=== PATIENT | female | born 1950 | race Caucasian/White ===

== ENCOUNTER → 2017-11-29 | Day surgery (SDC) | payer MEDICARE, OTHER ==
[2017-11-28 12:49] LABS: BASOPHILS # (AUTO) 0.1 (0.0-0.1); BASOPHILS % 0.7 % (0.0-1.0); EOSINOPHILS # (AUTO) 0.1 (0.0-0.4); LYMPHOCYTES # (AUTO) 2.7 (1.0-3.2); LYMPHOCYTES % 38.5 % (18.0-39.1); MEAN CORPUSCULAR HEMOGLOBIN 29.6 pg (28-32); MEAN CORPUSCULAR HGB CONC 34.1 g/dL (31-35); MONOCYTES # (AUTO) 0.6 (0.2-0.8); MONOCYTES % 8.4 % (4.4-11.3); NEUTROPHILS # (AUTO) 3.6 (2.1-6.9); NEUTROPHILS % 50.1 % (38.7-80.0); PLATELET COUNT 264 x10e3/uL (140-360); RED BLOOD COUNT 5.06 x10e6/uL (3.6-5.1); RED CELL DISTRIBUTION WIDTH 12.5 % (11.7-14.4)
[2017-11-28 13:12] LABS: ANION GAP 18.2 mmol/L (8-16); CALCIUM 10.2 mg/dL (8.4-10.2); CREATININE, SERUM 0.95 mg/dL (0.57-1.11); POTASSIUM 3.2 mmol/L (3.5-5.1)
--- NOTE | 2017-11-28 13:24 | Diagnostic Imaging Report ---
EXAMINATION: CHEST 2 VIEWS INDICATION: PRE OP. \S\ANESTH PROT. Left foot surgery. COMPARISON: None FINDINGS: PA and lateral views TUBES and LINES: None. LUNGS: Lungs are well inflated. Punctate calcified granuloma in the left lung base. Lungs are clear. There is no evidence of pneumonia or pulmonary edema. PLEURA: No pleural effusion or pneumothorax. HEART AND MEDIASTINUM: The cardiomediastinal silhouette is unremarkable. BONES AND SOFT TISSUES: No acute osseous lesion. Soft tissues are unremarkable. UPPER ABDOMEN: No free air under the diaphragm. IMPRESSION: No acute thoracic abnormality. Signed by: Dr. Alton Talavera M.D. on 11/28/2017 1:21 PM
[~2017-11-29] MED LIST: BUPIVACAINE HCL 0.5% INJ 30 ML VIAL INJ ONE; CEFAZOLIN SOD 1 GM VIAL ONE; DEXAMETHASONE SOD PHOS INJ 4 MG/ML VIAL ONE; DIOVAN PO; EFFEXOR PO; EPHEDRINE SULFATE INJ 50 MG/10 ML SYR ONE; FENTANYL CITRATE/PF 100MCG/2 ML INJ ONE; LIDOCAINE HCL 2% LOCAL INJ 5 ML SDV VIAL INJ ONE; MIDAZOLAM HCL 2 MG/2 ML VIAL ONE; ONDANSETRON HCL INJ 2 MG/ML VIAL ONE; PHENYLEPHRINE HCL 1% 10 MG/ML VIAL ONE; PROMETHAZINE HCL (IM) 25 MG/ML VIAL ONE; PROPOFOL IV EMULSION 10 MG/ML 20 ML VIAL ONE; SEVOFLURANE INHAL SOLN 250 ML PEN BTL ONE; TOPROL PO
--- NOTE | 2017-11-29 08:10 | Operative Report ---
DATE OF PROCEDURE: November 29, 2017 PREOPERATIVE DIAGNOSIS: Left hallux valgus. POSTOPERATIVE DIAGNOSES 1. Left hallux valgus. 2. Left 2nd digit exostectomy. 3. Left 1st digit exostosis. PROCEDURES 1. Left Deny bunionectomy with 1st metatarsal osteotomy and internal fixation. 2. Left 2nd digit exostosis. 3. Left 1st digit exostosis. ACCOUNT EXECUTIVE KEY ACCOUNTS: None. ANESTHESIA: General with a postoperative block consisting of 15 mL of 0.5% Marcaine plain mixed with 1 mL of dexamethasone phosphate. HEMOSTASIS: Pneumatic thigh tourniquet set at 350 mmHg for a total time of approximately 45 minutes. MATERIALS: Two 2 mm x 14 mm cortical bone screws, 2-0 Vicryl, 3-0 Vicryl, 4-0 Prolene. ESTIMATED BLOOD LOSS: Less than 10 mL. PATHOLOGY: None. PROCEDURE NOTE: The patient was seen in the preoperative waiting where the correct procedure and site was identified. The patient was brought into the operating room and placed on the operating table in the supine position. General anesthesia was initiated at this time. A well-padded pneumatic tourniquet was placed about the patient's right thigh. The right foot, ankle and leg was then scrubbed, prepped and draped in the usual aseptic manner. The right foot, ankle and leg was exsanguinated with an Esmarch bandage and the pneumatic thigh tourniquet was inflated to 350 mmHg for a total time approximately 45 minutes. Attention was directed to the dorsomedial aspect of the patient's left foot where a 5 cm curvilinear incision was made directly over the 1st metatarsophalangeal joint medial to the extensor hallucis longus tendon. The incision was carried through the subcutaneous tissues them from deeper underlying structures. All vital neurovascular structures were identified and retracted medial and laterally, and all bleeders were cauterized or ligated as deemed necessary. Next, attention was directed to the 1st interspace where through the same incision a full lateral release was performed consisting of the deep transverse metatarsal ligament, lateral collateral ligament, as well as a fibular sesamoid ligament. The hallux was then put through a range of motion and found to be functioning in more proper anatomic alignment. Next, an inverted L-capsulotomy was performed at the level of 1st metatarsophalangeal joint to allow for good visualization of the 1st metatarsal head. Utilizing a sagittal saw, the medial eminence was resected and passed off to the back table. Next, a medial to lateral Chevron osteotomy was performed with the dorsal limb longer to allow for proper fixation. The capital fragment was transposed laterally approximately 2-3 mm and impacted onto the shaft of the metatarsal. The osteotomy was then temporarily fixated with a K-wire and permanently fixated utilizing techniques of AO fixation with two 2 mm x 14 mm cortical bone screws. The incision site was then flushed with copious amounts of sterile saline. Capsular and deep tissue were reapproximated with 2-0 Vicryl, subcutaneous tissue with 3-0 Vicryl and skin was closed using a running interlocking stitch with 4-0 Prolene. Reduction of IM angle and tibial sesamoid position was noted. Next, attention was directed to the hyperkeratotic tissue on the medial aspect of the 2nd proximal interphalangeal joint. Utilizing 2 small converging semi-elliptical incisions approximately 1.5 cm each, the central callous tissue was excised. Utilizing a rongeur and a rotary bur, the medial eminence of the head of the proximal phalanx and base of the middle phalanx was smoothed and excised. The wound was then flushed with copious amounts of sterile saline. The incision site was reapproximated utilizing simple interrupted sutures with 4-0 Prolene. Next, a stab incision was made at the medial aspect of the left hallux in the area of the interphalangeal joint. Utilizing a rotary Elsa bur side-cutting bur, the lateral eminence was resected and smoothed to anatomic alignment. Flushed with copious amounts of sterile saline. The incision site was reapproximated with simple interrupted sutures with 4-0 Prolene. The incision sites were then dressed with Betadine-soaked Adaptic, 4 x 4's, Kerlix, Juliocesar wrap, and a postop shoe. The patient tolerated the procedure and anesthesia well. Patient was transferred to the postoperative recovery unit with vital signs stable and vascular status intact. The patient was monitored there for a short period of time before being sent home with the following written and oral instructions: 1. Keep the dressing clean, dry and intact. 2. The patient is to remain partial weightbearing in a postop shoe and is to avoid excessive ambulation until being seen in the office. 3. Patient was given the office number and instructed to contact us if any problems should arise. Job#: [id number] [place]
[2017-11-29 09:00] VITALS: BP 129/76
== END | disposition home or self-care (01) ==
LOC: OR 05:05
PROVIDERS: ATTEND Podiatrist Foot & Ankle Surgery
DX: M20.12 Hallux valgus (acquired), left foot (principal); M25.775 Osteophyte, left foot; L84 Corns and callosities; I10 Essential (primary) hypertension; I49.3 Ventricular premature depolarization; Z01.810 Encounter for preprocedural cardiovascular examination; Z01.812 Encounter for preprocedural laboratory examination; Z01.818 Encounter for other preprocedural examination; Z88.6 Allergy status to analgesic agent
CPT/HCPCS: 28108 ×2; 28296; 36415; 71046; 80048; 85025; 93005; C1713; J0690; J1100; J2001; J2250; J2370; J2405; J2550

== ENCOUNTER 2018-08-27 20:25 | Emergency (ER) | payer MEDICARE ==
[~2018-08-27] VITALS: Ht 172.7 cm; Wt 72.1 kg
[~2018-08-27 20:25] MED LIST changes: -BUPIVACAINE HCL 0.5% INJ 30 ML VIAL INJ ONE; -CEFAZOLIN SOD 1 GM VIAL ONE; -DEXAMETHASONE SOD PHOS INJ 4 MG/ML VIAL ONE; -EPHEDRINE SULFATE INJ 50 MG/10 ML SYR ONE; -FENTANYL CITRATE/PF 100MCG/2 ML INJ ONE; -LIDOCAINE HCL 2% LOCAL INJ 5 ML SDV VIAL INJ ONE; -MIDAZOLAM HCL 2 MG/2 ML VIAL ONE; -ONDANSETRON HCL INJ 2 MG/ML VIAL ONE; -PHENYLEPHRINE HCL 1% 10 MG/ML VIAL ONE; -PROMETHAZINE HCL (IM) 25 MG/ML VIAL ONE; -PROPOFOL IV EMULSION 10 MG/ML 20 ML VIAL ONE; -SEVOFLURANE INHAL SOLN 250 ML PEN BTL ONE
[2018-08-27] MEDS ORDERED: KETOROLAC TROMETHAMINE 60 MG/2 ML VIAL ONE (21:24)
[2018-08-27] MEDS ORDERED: DIAZEPAM 5 MG TAB ONE (21:25)
[2018-08-27] MEDS ORDERED: KETOROLAC TROMETHAMINE 60 MG/2 ML VIAL IM ONE (21:30)
[2018-08-27] MEDS ORDERED: DIAZEPAM 5 MG TAB PO SCH (21:30)
[2018-08-27 21:52] LABS: BILIRUBIN,URINE NEGATIVE (NEGATIVE); CLARITY,URINE CLEAR (CLEAR); COLOR,URINE YELLOW (YELLOW); KETONES,URINE NEGATIVE (NEGATIVE); LEUKOCYTE ESTERASE ,URINE NEGATIVE (NEGATIVE); NITRITE,URINE NEGATIVE (NEGATIVE); PROTEIN,URINE DIPSTICK NEGATIVE (NEGATIVE); URINE UROBILINOGEN 0.2 mg/dL (0.2 - 1)
[2018-08-27 22:25] LABS: BACTERIA,URINE RARE /HPF; RBC,URINE 0-5 /HPF (0-5); WBC,URINE (MAN) 0-5 /HPF (0-5)
[2018-08-27 22:26] LABS: EPITHELIAL CELLS,URINE RARE /LPF
== END 2018-08-27 22:30 | disposition home or self-care (01) ==
LOC: ER 20:25
DX: M54.5 Low back pain (principal); M62.830 Muscle spasm of back; I10 Essential (primary) hypertension
CPT/HCPCS: 81001; 99283; J1885